=== PATIENT | female | born 1990 | race Caucasian/White ===

== ENCOUNTER 2020-10-15 03:40 | Emergency (ER) | payer OTHER ==
[~2020-10-15] VITALS: Ht 162.6 cm; Wt 68.9 kg
[2020-10-15 03:49] VITALS: Ht 162.6 cm; Wt 68.9 kg
[2020-10-15 05:20] LABS: BASOPHIL % 0.5 % (0.2-1.3); PLATELET COUNT 245 x10^3mcL (179-408)
[2020-10-15 05:45] LABS: microscopic required? NO
[2020-10-15 05:48] LABS: urine erythrocyte NEGATIVE (NEGATIVE)
[2020-10-15 05:52] LABS: CHLORIDE SERUM 102 mmol/L (98-107); GLUCOSE SERUM 97 mg/dL (74-106); POTASSIUM SERUM 3.3 mmol/L (3.5-5.1); SODIUM SERUM 132 mmol/L (136-145)
[2020-10-15 05:53] LABS: CALCIUM 9.4 mg/dL (8.5-10.1); CARBON DIOXIDE 16.9 mmol/L (21-32); CREATININE SERUM 0.7 mg/dL (0.6-1.0); GFR1 > 60 mL/min
[2020-10-15 05:57] LABS: AMPHETAMINE QUAL UR NONE DETECTED (See below)
[2020-10-15 05:58] LABS: FREE T4 1.23 ng/dL (0.76-1.46); FREE THYROXINE INDEX 2.4 ug/dL (1.4-4.5)
[2020-10-15 06:08] LABS: T3 TOTAL 1.11 ng/mL
[2020-10-15 06:16] LABS: ALBUMIN 4.2 g/dL (3.4-5.0); BILIRUBIN TOTAL 0.5 mg/dL (0.20-1.00); TOTAL PROTEIN, SERUM 7.3 g/dL (6.4-8.2)
[2020-10-15 06:17] LABS: ALKALINE PHOSPHATASE 87 U/L (46-116); ALT/SGPT 68 U/L (14-59); AST/SGOT 31 U/L (15-37)
[2020-10-15 07:05] VITALS: BP 112/74
== END 2020-10-15 07:05 | disposition home or self-care (01) ==
LOC: ED 03:40
PROVIDERS: Emergency Medicine
DX: F41.9 Anxiety disorder, unspecified (principal); E87.1 Hypo-osmolality and hyponatremia; E87.6 Hypokalemia; R74.01 Elevation of levels of liver transaminase levels; R00.0 Tachycardia, unspecified
CPT/HCPCS: 84439; 85378; G0480; J2060; J3490; J7030